=== PATIENT | female | born 1995 | race Caucasian/White ===

== ENCOUNTER 2019-10-07 01:32 | Emergency (ER) | payer BC, SELFPAY ==
[2019-10-07 01:39] VITALS: BP 145/85; PULSE 89; RESP 16; TEMP 36.3; O2SAT 99
--- NOTE | 2019-10-07 02:13 | PC.NURSE ---
pt asked to see nurse, pt told Rn that MD said she wasnt going to tonoght and aric rather go see her own PMD at this time, RN then told MD that pt wanted to leave and MD said that she would talk with pt.
--- NOTE | 2019-10-07 02:26 | PC.NURSE ---
before MD could discuss treatment opions with pt, pt walked out of ER with friend. pt asked RN for doctors note before walking out. MD notified of pt leaving.
--- NOTE | 2019-10-07 04:39 | ED.GENADULT ---
HPI - General Adult General Chief complaint: Unspecified Stated complaint: numbness in legs and hands Time Seen by Provider: 10/07/19 01:48 Source: patient Mode of arrival: ambulatory Limitations: no limitations History of Present Illness HPI narrative: This patient is a 24 year old female who presents for evaluation of numbness and tingling to bilateral hands and feet. Patient states for the past 2 weeks she has been having bilateral numbness to her hands that occur at night. During the day, she reports she has no symptoms. She also reports numbness tingling to bilateral feet that occurs at night intermittently. She denies difficulty walking or extremity weakness. She denies fever, chills, neck pain, chest pain or headache. She reports tonight she sat up quickly and she developed lightheadedness. She denies blurred vision but reported seeing spots when she sat up quickly. Tonight she reports she woke up and her right leg numbness feels different. Onset (ago): week(s) (2) Related Data Allergies Allergy/AdvReac Type Severity Reaction Status Date / Time sertraline Allergy Mild Hives / Verified 03/08/18 16:21 Red Face Sulfa (Sulfonamide Allergy Unknown Verified 03/08/18 16:21 Antibiotics) Review of Systems Review of Systems: All systems reviewed & are unremarkable except as noted in HPI and below Constitutional: Constitutional: Denies chills and Denies fever(s) Eyes: Eyes: Denies change in vision ENT: Denies nasal congestion and Denies sore throat Cardiovascular: Cardiovascular: Denies chest pain Respiratory: Respiratory: Denies cough and Denies dyspnea Gastrointestinal: Gastrointestinal: Denies abdominal pain Musculoskeletal: Musculoskeletal: Reports back pain (chronic low back pain) Neurologic: Denies vertigo, Denies headache(s), Denies focal weakness, Reports numbness and Denies weakness PMFSH Past Medical History Medical History (Updated 10/07/19 @ 05:09 by Maritza Dailey MD) Patient denies medical problems Surgical History Surgical History (Updated 10/07/19 @ 04:40 by Maritza Dailey MD) No pertinent past surgical history Social History Social History (Updated 10/07/19 @ 04:39 by Maritza Dailey MD) Smoking status: Never smoker Exam Narrative: Exam Narrative: GENERAL: Well-appearing, well-nourished, and in no acute distress. HEAD: Normocephalic, atraumatic EYES: PERRLA and EOMI, conjunctiva clear without discharge EARS: TM's clear bilaterally without erythema or dullness NOSE: Nares clear, no rhinorrhea or epistaxis THROAT:Mucous membranes moist, Oropharynx normal without erythema, exudate, peritonsillar swelling or fluctuance NECK: Supple, without lymphadenopathy or mass RESPIRATORY: No respiratory distress, Airway patent, Respirations non-labored, Clear to auscultation without rales, rhonchi or wheeze HEART: Regular rate and rhythm. No murmur heard. Normal peripheral pulses. ABDOMEN: Soft, nontender, nondistended, normal active bowel sounds. No masses. No rebound or guarding, No organomegaly. EXTREMITIES: No edema, normal strength with full range of motion. SKIN: Warm, dry, normal color without rash NEURO: Alert and oriented x3. CN 2-12 grossly intact. No focal deficits. PSYCH: Normal mood and affect. Back/Spine/Pelvis: Cervical Spine: cervical ROM normal and cervical muscular tenderness Neuro: General: no focal motor deficits and CN's II-XI intact bilaterally Cranial nerves: Yes Symmetric palate elevation present Speech: normal speech Gait exam (Neuro): Normal gait present Motor exam (neuro): 5/5 motor strength present throughout, No tremor noted, No asterixis and Motor fasciculations not present Sensory Exam: Normal double simultaneous stimulation for sensation Course Reevaluation(s) Reevaluation #1: After examining patient, I discussed that I would perform labs and CT scan to assess her paresthesia. She walked out before getting test. Date:
== END 2019-10-07 02:29 | disposition left against medical advice (07) ==
PROVIDERS: Emergency Provider General Practice; PCP Internal Medicine
DX: R20.2 Paresthesia of skin (principal)
CPT/HCPCS: 99281